=== PATIENT | female | born 1970 | race Caucasian/White ===

== ENCOUNTER 2023-07-04 05:45 | Emergency (ER) | payer BC, MEDICAID ==
[2023-07-04] MEDS ORDERED: Ketorolac 60 MG/2 ML SDV IM ONE (06:21)
[2023-07-04] MEDS ORDERED: BROMPHENIRAMINE PO ONE (06:25)
[2023-07-04] MEDS ORDERED: PSEUDOEPHEDRINE PO ONE (06:25)
[2023-07-04] MEDS ORDERED: Benzonatate 100 MG Cap PO ONE (06:26)
[2023-07-04] MEDS ORDERED: Ketorolac 60 MG/2 ML SDV ONE (06:31)
[2023-07-04 07:05] LABS: INFLUENZA A NAA POSITIVE (NEGATIVE); INFLUENZA B NAA NEGATIVE (NEGATIVE); RESPIRATORY SYNCYTIAL VIR NAA NEGATIVE (NEGATIVE)
[2023-07-04 07:09] LABS: CORONAVIRUS COVID-19 NAA POSITIVE (NEGATIVE)
[2023-07-04] MEDS ORDERED: Acetaminophen 500 MG Tab ONE (07:12)
[2023-07-04] MEDS ORDERED: Acetaminophen 500 MG Tab PO ONE (07:13)
== END 2023-07-04 07:30 | disposition home or self-care (01) ==
LOC: LB.ED 05:50 → SUPCPDRO 05:50 → LB.ED 07:30
DX: U07.1 COVID-19 (principal); J10.1 Influenza due to other identified influenza virus with other respiratory manifestations; Z88.0 Allergy status to penicillin
CPT/HCPCS: 0241U; 96372; 99284; A9270-GY; J1885